=== PATIENT | male | born 1945 | race Caucasian/White ===

== ENCOUNTER 2018-12-14 18:49 | Inpatient (IN) | payer OTHER ==
[2018-12-14] MEDS ORDERED: NA CHLORIDE 0.9% 250 ML ONE ×2 (19:55→20:50)
[2018-12-14 20:09] LABS: Hematocrit 34.5 % (39.6-49.0); RBC Red Blood Cell Count 3.58 M/uL (4.33-5.43)
[2018-12-14 20:10] LABS: Absolute Lymphocytes (CBC) 0.9 K/uL (0.7-4.9); Basophils % 0.2 % (0-1.3); Lymphocytes % 6.9 % (15.3-44.8); MPV 8.6 fL (7.6-11.3)
[2018-12-14 20:13] LABS: Protime INR 1.85
--- NOTE | 2018-12-14 20:18 | RAD REPORT ---
EXAM DESCRIPTION: RAD - Chest Single View - 12/14/2018 7:41 pm CLINICAL HISTORY: Weakness, tachypnea COMPARISON: August 2015 TECHNIQUE: AP portable chest image was obtained 1928 hours . FINDINGS: Lung volumes are low. This accentuates lung markings potentially masking early failure or volume overload. Trachea is midline. Cardiomediastinal silhouette within normal limits for body habit us, portable technique and shallow inspiration. No measurable pleural effusion and no pneumothorax. N o acute bony abnormality seen. No acute aortic findings suspected. IMPRESSION: Limited portable study without acute cardiopulmonary finding. Mild forms of failure or volume overload can be masked in this setting.
[2018-12-14 20:24] LABS: Potassium 3.7 mmol/L (3.5-5.1)
--- NOTE | 2018-12-14 20:36 | ER ---
Nurse's Notes [facility] Name: Anoop Medina Age: 73 yrs Sex: Male : 1945 Arrival Date: 12/14/2018 Time: 18:50 Bed 15 Private MD: Bowen Carbajal Atiq Diagnosis: Cellulitis of right lower limb;Dehydration;Hypotension Presentation: 12/14 19:00 Presenting complaint: EMS states: Cellulitis of bilateral lower extremities, edema and jl7 weakness. Pt states "My sister made me call." Pt denies pain, denies N/V/D. Transition of care: patient was not received from another setting of care. Onset of symptoms is unknown. Risk Assessment: Do you want to hurt yourself or someone else? Patient reports no desire to harm self or others. Initial Sepsis Screen: Does the patient meet any 2 criteria? No. Patient's initial sepsis screen is negative. Does the patient have a suspected source of infection? No. Patient's initial sepsis screen is negative. Care prior to arrival: IV initiated. 20 GA, in the right hand, Glucose check: 93 Oxygen administered. via nasal cannula. 19:00 Method Of Arrival: EMS: [facility] jl7 19:00 Acuity: ROSY 3 jl7 Historical: - Allergies: 19:04 Zocor; jl7 - Home Meds: 19:04 Xarelto Oral [Active]; carvedilol oral oral [Active]; Hydrochlorothiazide Oral jl7 [Active]; Folbic Oral [Active]; valsartan Oral [Active]; - PMHx: 19:04 Atrial Fib; High Cholesterol; Hypertension; jl7 - Immunization history:: Adult Immunizations unknown. - Social history:: Smoking status: Patient uses tobacco products, chewing tobacco. - Ebola Screening: : No symptoms or risks identified at this time. - Family history:: not pertinent. - Hospitalizations: : No recent hospitalization is reported. Screenin:00 Abuse screen: Denies threats or abuse. Nutritional screening: No deficits noted. jb4 Tuberculosis screening: No symptoms or risk factors identified. Fall Risk None identified. Assessment: 19:00 General: Appears in no apparent distress. comfortable, Behavior is calm, cooperative, jb4 appropriate for age. Pain: Denies pain. Neuro: Level of Consciousness is awake, alert, obeys commands, Oriented to person, place, time, situation. Cardiovascular: Patient's skin is warm and dry. Edema is 2+ to left foot and right foot pitting to left foot and right foot. Respiratory: Airway is patent Respiratory effort is even, unlabored, Respiratory pattern is regular, symmetrical. GI: No deficits noted. No signs and/or symptoms were reported involving the gastrointestinal system. : No deficits noted. No signs and/or symptoms were reported regarding the genitourinary system. EENT: No deficits noted. No signs and/or symptoms were reported regarding the EENT system. Derm: Skin is intact, Skin is pink, warm \\T\\ dry. Right lower leg is red and inflamed, hot to the touch. Musculoskeletal: Circulation, motion, and sensation intact. Range of motion: intact in all extremities. 20:00 Reassessment: Patient appears in no apparent distress at this time. Patient and/or jb4 family updated on plan of care and expected duration. Pain level reassessed. Patient is alert, oriented x 3, equal unlabored respirations, skin warm/dry/pink. Vital Signs: 18:58 BP 104 / 60; Pulse 59; Resp 23; Temp 98.9(O); Pulse Ox 98% on R/A; Weight 146.06 kg jb4 (R); Height 5 ft. 11 in. (180.34 cm); Pain 0/10; 20:35 BP 103 / 62; Pulse 86; Resp 23; Pulse Ox 94% on 2 lpm NC; jb4 21:08 BP 102 / 57; Pulse 83; Resp 22; Temp 97.8(O); Pulse Ox 95% on 2 lpm NC; jb4 18:58 Body Mass Index 44.91 (146.06 kg, 180.34 cm) jb4 ED Course: 18:50 Patient arrived in ED. am2 18:50 Bowen Carbajal MD is Private Physician. am2 19:00 Patient has correct armband on for positive identification. Placed in gown. Bed in low jb4 position. Call light in reach. Side rails up X 1. business development on. Pulse ox on. NIBP on. 19:00 Maintain EMS IV. Dressing intact. Good blood return noted. Site clean \\T\\ dry. Gauge \\T\\ angela 4 site: 20g RFA. 19:02 Triage completed. jl7 19:04 Arm band placed on right wrist. jl7 19:06 Alexander Campos MD is Attending Physician. rn 19:06 Charlie Sylvester, RN is Primary Nurse. jb4 19:41 XRAY Chest (1 view) In Process Unspecified. EDMS 20:35 Negrito Romano MD is Hospitalizing Provider. rn 21:40 No provider procedures requiring assistance completed. Patient admitted, IV remains in jb4 place. Administered Medications: 19:55 Drug: NS 0.9% 250 ml Route: IV; Rate: bolus; Site: right antecubital; jb4 20:20 Follow up: Response: No adverse reaction; IV Status: Completed infusion; IV Intake: jb4 250ml 21:07 Drug: vancoMYCIN 1.5 grams Route: IVPB; Rate: calculated rate; Site: right forearm; jb4 21:45 Follow up: Response: No adverse reaction; IV Status: Infusion continued upon admission jb4 21:07 Drug: NS 0.9% 250 ml Route: IV; Rate: bolus; Site: right forearm; jb4 21:50 Follow up: Response: No adverse reaction; IV Status: Completed infusion; IV Intake: jb4 250ml Intake: 20:20 IV: 250ml; Total: 250ml. jb4 21:50 IV: 250ml; Total: 500ml. jb4 Outcome: 20:35 Decision to Hospitalize by Provider. rn 21:40 Admitted to Tele accompanied by nurse, via stretcher, room 407, with chart, Report jb4 called to [facility] 21:40 Condition: stable 21:40 Discharge instructions given to patient, Instructed on the need for admit, Demonstrated understanding of instructions. 21:45 Patient left the ED. jb4 Signatures: Dispatcher [employer] EDMS Alexander Campos MD MD rn Bryson, James, RN RN jb4 Radha George RN RN jl7 Subha Navarrete am2 Corrections: (The following items were deleted from the chart) 21:09 20:35 BP 103 / 62; Pulse 86bpm; Resp 23bpm; Pulse Ox 67% RA; jb4 jb4 21:10 21:08 BP 102 / 57; Pulse 83bpm; Resp 22bpm; Pulse Ox 95% 2 lpm Nasal Cannula; jb4 jb4
--- NOTE | 2018-12-14 20:37 | EDPHYS ---
Physician Documentation [facility] Name: Anoop Medina Age: 73 yrs Sex: Male : 1945 Arrival Date: 12/14/2018 Time: 18:50 Bed 15 Private MD: Bowen Carbajal Atiq ED Physician Alexander Campos HPI: 12/14 19:13 This 73 yrs old Male presents to ER via EMS with complaints of General rn Weakness. 19:13 This 73 yrs old Male presents to ER via EMS with complaints of General rn Weakness, cellulitis. 19:13 The patient presents with cellulitis of the right leg. Description: erythematous, hot, rn swollen, warm. Onset: The symptoms/episode began/occurred 3 day(s) ago. Possible cause(s): unknown. Modifying factors: the symptoms are alleviated by nothing, the symptoms are aggravated by nothing. Severity of symptoms: At their worst the symptoms were moderate, in the emergency department the symptoms are unchanged. The patient has experienced similar episodes in the past. Reports about 3 days of right leg redness and warmth, no fever, no known trauma other than states constant rubbing of leg of furniture. . Historical: - Allergies: 19:04 Zocor; jl7 - Home Meds: 19:04 Xarelto Oral [Active]; carvedilol oral oral [Active]; Hydrochlorothiazide Oral jl7 [Active]; Folbic Oral [Active]; valsartan Oral [Active]; - PMHx: 19:04 Atrial Fib; High Cholesterol; Hypertension; jl7 - Immunization history:: Adult Immunizations unknown. - Social history:: Smoking status: Patient uses tobacco products, chewing tobacco. - Ebola Screening: : No symptoms or risks identified at this time. - Family history:: not pertinent. - Hospitalizations: : No recent hospitalization is reported. ROS: 19:15 Constitutional: Negative for fever, chills, and weight loss, Eyes: Negative for injury, rn pain, redness, and discharge, Neck: Negative for injury, pain, and swelling, Cardiovascular: Negative for chest pain, palpitations, + edema Respiratory: Negative for shortness of breath, cough, wheezing, and pleuritic chest pain, Abdomen/GI: Negative for abdominal pain, nausea, vomiting, diarrhea, and constipation, : Negative for injury, bleeding, discharge, and swelling, MS/Extremity: Negative for injury and deformity, Skin: + redness of RLE, no laceration or abscess Neuro: Negative for headache, numbness, tingling, and seizure. Exam: 19:15 Constitutional: Overweight male, no acute distress Head/Face: Normocephalic, rn atraumatic. Eyes: Pupils equal round and reactive to light, extra-ocular motions intact. Lids and lashes normal. Conjunctiva and sclera are non-icteric and not injected. Cornea within normal limits. Periorbital areas with no swelling, redness, or edema. ENT: dry MM Cardiovascular: Regular rate, irregular rhythm, distal pulses intact Respiratory: Mild tachypnea with diminished breath sounds at bases Abdomen/GI: soft, non-tender, + umbilical hernia easily reduced and non-tender Skin: + chronic lymphedema with assoc changes, + RLE erythema and warmth superimposed to right knee, no purulence, no fluctuance. MS/ Extremity: Pulses equal, no cyanosis. Neurovascular intact. Full, normal range of motion. Equal circumference. Neuro: Awake and alert, GCS 15 19:47 ECG was reviewed by the Attending Physician. rn Vital Signs: 18:58 BP 104 / 60; Pulse 59; Resp 23; Temp 98.9(O); Pulse Ox 98% on R/A; Weight 146.06 kg jb4 (R); Height 5 ft. 11 in. (180.34 cm); Pain 0/10; 20:35 BP 103 / 62; Pulse 86; Resp 23; Pulse Ox 94% on 2 lpm NC; jb4 21:08 BP 102 / 57; Pulse 83; Resp 22; Temp 97.8(O); Pulse Ox 95% on 2 lpm NC; jb4 18:58 Body Mass Index 44.91 (146.06 kg, 180.34 cm) jb4 MDM: 19:06 Patient medically screened. rn 20:34 Differential diagnosis: cellulitis. Data reviewed: vital signs, nurses notes, lab test rn result(s), radiologic studies, plain films, and as a result, I will admit patient. Counseling: I had a detailed discussion with the patient and/or guardian regarding: the historical points, exam findings, and any diagnostic results supporting the discharge/admit diagnosis, lab results, radiology results, the need for further work-up and treatment in the hospital. Response to treatment: the patient's symptoms have mildly improved after treatment, and as a result, I will admit patient. Admission orders: after a detailed discussion of the patient's condition and case, the admit orders are written by me. ED course: Consulted with Dr. Romano, will admit for cellulitis, low blood pressure, dehydration. BP improving with fluids, will not give too much 2/2 CHF. . 12/14 19:12 Order name: CBC with Diff; Complete Time: 21:05 rn 12/14 19:12 Order name: Basic Metabolic Panel; Complete Time: 20:31 rn 12/14 19:12 Order name: Protime (+inr); Complete Time: 20:31 rn 12/14 19:12 Order name: Ptt, Activated; Complete Time: 20:31 rn 12/14 19:12 Order name: Blood Culture Adult (2) 12/14 19:12 Order name: Procalcitonin; Complete Time: 21:05 rn 12/14 19:12 Order name: IV Start; Complete Time: 19:48 rn 12/14 19:12 Order name: BNP; Complete Time: 20:31 rn 12/14 19:12 Order name: EKG; Complete Time: 19:13 rn 12/14 19:14 Order name: XRAY Chest (1 view); Complete Time: 20:31 rn 12/14 20:15 Order name: Manual Differential; Complete Time: 21:05 EDWA 12/14 19:12 Order name: EKG - Nurse/Tech; Complete Time: 19:48 rn EC:47 Rate is 87 beats/min. Rhythm is irregularly irregular. QRS Bascom is Normal. QRS interval rn is normal. QT interval is normal. No Q waves. T waves are Normal. No ST changes noted. Clinical impression: Atrial Fibrillation. Interpreted by me. Reviewed by me. Administered Medications: 19:55 Drug: NS 0.9% 250 ml Route: IV; Rate: bolus; Site: right antecubital; jb4 20:20 Follow up: Response: No adverse reaction; IV Status: Completed infusion; IV Intake: jb4 250ml 21:07 Drug: vancoMYCIN 1.5 grams Route: IVPB; Rate: calculated rate; Site: right forearm; jb4 21:45 Follow up: Response: No adverse reaction; IV Status: Infusion continued upon admission jb4 21:07 Drug: NS 0.9% 250 ml Route: IV; Rate: bolus; Site: right forearm; jb4 21:50 Follow up: Response: No adverse reaction; IV Status: Completed infusion; IV Intake: jb4 250ml Disposition: 12/14/18 20:35 Hospitalization ordered by Negrito Romano for Inpatient Admission. Preliminary diagnosis are Cellulitis of right lower limb, Dehydration, Hypotension. - Bed requested for Telemetry/MedSurg (Inpatient). - Status is Inpatient Admission. jb4 - Condition is Stable. - Problem is new. - Symptoms have improved. UTI on Admission? No Signatures: Dispatcher [employer] EDMS Lissy Mace RN RN mw Alexander Campos MD MD rn Bryson, James, RN RN jb4 Radha George RN RN jl7 Corrections: (The following items were deleted from the chart) 20:43 20:35 Hospitalization Ordered by Negrito Romano MD for Inpatient Admission. Preliminary diagnosis is Cellulitis of right lower limb; Dehydration; Hypotension. Bed requested for Telemetry/MedSurg (Inpatient). Status is Inpatient Admission. Condition is Stable. Problem is new. Symptoms have improved. UTI on Admission? No. rn 21:45 20:43 12/14/2018 20:35 Hospitalization Ordered by Negrito Romano MD for Inpatient jb4 Admission. Preliminary diagnosis is Cellulitis of right lower limb; Dehydration; Hypotension. Bed requested for Telemetry/MedSurg (Inpatient). Status is Inpatient Admission. Condition is Stable. Problem is new. Symptoms have improved. UTI on Admission? No. mw
[2018-12-14] MEDS ORDERED: NA CHLORIDE 0.9% 500 ML ONE (20:50)
[2018-12-14] MEDS ORDERED: VANCOMYCIN 1 GM/VIAL ONE (20:50)
[2018-12-14 20:58] LABS: Blood Morphology Comment NOT SEEN (NOT SEEN); Platelet Estimate ADEQ
[2018-12-14] MEDS ORDERED: NA CHLORIDE 0.9% 1,000 ML IV SCH (21:49)
[2018-12-14] MEDS ORDERED: ONDANSETRON 4 MG/2 ML VIAL IV PRN (21:49)
[2018-12-14] MEDS ORDERED: ACETAMINOPHEN 500 MG TAB PO PRN (21:49)
[2018-12-15 05:04] LABS: Absolute Lymphocytes (CBC) 0.8 K/uL (0.7-4.9); Basophils % 0.3 % (0-1.3); Lymphocytes % 7.3 % (15.3-44.8); MPV 8.4 fL (7.6-11.3); RBC Red Blood Cell Count 3.22 M/uL (4.33-5.43)
[2018-12-15 05:17] LABS: Potassium 3.8 mmol/L (3.5-5.1)
[2018-12-15 06:58] LABS: Blood Morphology Comment NOTED (NOT SEEN); Hypochromasia 1+; Platelet Estimate ADEQ; Stomatocytes 1+
[2018-12-15] MEDS ORDERED: VANCOMYCIN/NS 1 gm 1 GM/250 ML BAG IVPB SCH (09:00)
--- NOTE | 2018-12-15 09:34 | EKG ---
Test Date: 2018-12-14 Test Time: 19:43:34 Poultry Buyer: CARISSA MEASUREMENT RESULTS: Intervals: Rate: 87 MT: QRSD: 114 QT: 394 QTc: 474 [place]: P: MT: QRS: 47 T: 74 INTERPRETIVE STATEMENTS: Atrial fibrillation with premature ventricular or aberrantly conducted complexes Abnormal ECG Compared to ECG 09/06/2015 10:47:04 No significant changes Electronically Signed On 12-15-18 09:33:48 CDT by Jose Bae
[2018-12-15] MEDS ORDERED: clonazePAM 0.5 MG TAB PO ONE (12:58)
[2018-12-15] MEDS ORDERED: VANCOMYCIN 2 GM in NA CHLORIDE 0.9% 500 ML IVPB SCH (17:00)
--- NOTE | 2018-12-15 17:35 | P.HP ---
Certification for Inpatient Patient admitted to: Observation With expected LOS: <2 Midnights Patient will require the following post-hospital care: None Practitioner: I am a practitioner with admitting privileges, knowledge of patient current condition, hospital course, and medical plan of care. 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 He came to the hospital. Was found to have an elevated bun. The patient has been having cellulitis. He does not recall when this happened. The patient was admitted for iv fluids and hydration. He has been having some confusion on the fluids. The patient is not complaining of fevers. Allergies simvastatin [From Zocor] Allergy (Verified 12/14/18 22:33) Unknown Home Medications: Atorvastatin Calcium [Lipitor] 10 mg PO DAILY #30 tablet 09/17/11 Rivaroxaban [Xarelto] 20 mg PO DAILY #30 tablet 09/17/11 hydroCHLOROthiazide [Hydrodiuril*] 25 mg PO DAILY 09/06/15 Cyanocobalamin/Folic AC/Vit B6 [Folbic Tablet] 1 tab PO DAILY 12/14/18 Aspirin Chewable [Aspirin Chewable*] 81 mg PO DAILY 12/15/18 Carvedilol [Coreg] 12.5 mg PO BID 12/15/18 Metformin HCl [Glucophage] 500 mg PO BIDWM 12/15/18 Valsartan [Diovan] 160 mg PO DAILY 12/15/18 - Past Medical/Surgical History Has patient received pneumonia vaccine in the past: No Diabetic: No -: Hypertension -: Atrial fibrillation -: Hyperlipidemia -: Coronary artery disease with previous stent -: Morbid obesity -: Obstructive sleep apnea -: Cardiac catheterization with stent Psychosocial/ Personal History: He is single. Has no children. 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 - Social History Smoking Status: Never smoker Alcohol use: No CD- Drugs: No Caffeine use: No Place of Residence: Home Review of Systems 10-point ROS is otherwise unremarkable General: Fever Integumentary: Other (cellulitis of the lower leg) Physical Examination - Vital Signs Temperature: 98.9 F Blood Pressure: 112/76 Pulse: 63 Respirations: 20 Pulse Ox (%): 91 - Physical Exam General: Alert, In no apparent distress HEENT: Atraumatic, PERRLA, Mucous membr. moist/pink, EOMI, Sclerae nonicteric Neck: Supple, 2+ carotid pulse no bruit, No LAD, Without JVD or thyroid abnormality Respiratory: Clear to auscultation bilaterally, Normal air movement Cardiovascular: Regular rate/rhythm, Normal S1 S2 Gastrointestinal: Normal bowel sounds, No tenderness Musculoskeletal: No tenderness Integumentary: No rashes, Erythema, Warmth (right lower leg) Neurological: Normal gait, Normal speech, Normal strength at 5/5 x4 extr, Normal tone, Normal affect Lymphatics: No axilla or inguinal lymphadenopathy - Studies Laboratory Data (last 24 hrs) 12/14/18 19:53: PT 21.3 H, INR 1.85, APTT 36.0 12/14/18 19:53: Sodium 140, Potassium 3.7, BUN 76 H, Creatinine 1.12, Glucose 94 12/14/18 19:53: WBC 12.6 H, Hgb 11.5 L, Hct 34.5 L, Plt Count 352 Microbiology Data (last 24 hrs): 12/14/18 20:33 Blood - Blood Anaerobic Blood Culture - Final Assessment and Plan - Problems (Diagnosis) (1) Dehydration Current Visit: Yes Status: Acute Plan: will need to get a line in. will start him back on fluids. (2) Sleep apnea Current Visit: Yes Status: Acute Plan: will ask the family about getting his cpap from home. (3) Cellulitis Onset Date: 09/07/15 Current Visit: No Status: Acute Plan: Will switch to iv antibiotics. Will follow blood work as well. Qualifiers: Site of cellulitis of extremity: lower extremity Laterality: right (4) Hypertension Onset Date: 09/07/15 Current Visit: No Status: Chronic Plan: Continue home blood pressure medications. Qualifiers: Hypertension type: essential hypertension (5) Obstructive sleep apnea Onset Date: 09/07/15 Current Visit: No Status: Chronic Discharge Plan: Home Plan to discharge in: 48 Hours - Advance Directives Does patient have a Living Will: No Does patient have a Durable POA for Healthcare: No - Code Status/Comfort Care Code Status Assessed: No Code Status: Full Code Physician Review: Patient Assessed, Agree with Above Assessment and Plan Critical Care: No Time Spent Managing Pts Care (In Minutes): 45
[2018-12-15] MEDS: NA CHLORIDE 0.9% 1,000 ML IV SCH (18:47)
--- NOTE | 2018-12-15 18:48 | RAD REPORT ---
EXAM DESCRIPTION: CT - Head Brain Wo Cont - 12/15/2018 6:39 pm CLINICAL HISTORY: AMS Headache, drowsiness COMPARISON: Chest Abdomen Pelvis W Cont dated 09/06/2015 TECHNIQUE: All CT scans are performed using dose optimization technique as appropriate and may inclu de automated exposure control or mA/KV adjustment according to patient size. FINDINGS: No intracranial hemorrhage, hydrocephalus or extra-axial fluid collection.Area of diminish ed density is seen in the right posterior occipital lobe white matter measuring 18 mm, nonspecific. The paranasal sinuses and mastoids are clear. The calvarium is intact. Left vertebral artery is calci fied. IMPRESSION: 18 mm area of diminished nonspecific subcortical white matter density is present in the right occipital region. An area of subacute ischemia is possible. MRI brain with contrast followup w ould be suggested.
[2018-12-15] MEDS: SMZ./TMP. 800/160 MG TABLET PO SCH (20:00)
[2018-12-15] MEDS: RIVAROXABAN 20 MG TABLET PO SCH (20:03)
[2018-12-15] MEDS ORDERED: ATORVASTATIN 80 MG TAB PO SCH (21:00)
[2018-12-15] MEDS ORDERED: carvediloL 12.5 MG TAB PO SCH (21:00)
[2018-12-16] MEDS: NA CHLORIDE 0.9% 1,000 ML IV SCH ×2 (05:27→22:04)
[2018-12-16] MEDS ORDERED: RIVAROXABAN 20 MG TABLET PO SCH (08:00)
[2018-12-16] MEDS ORDERED: NA CHLORIDE 0.9% 500 ML IV ONE (08:54)
[2018-12-16] MEDS ORDERED: VALSARTAN 160 MG TAB PO SCH (09:00)
[2018-12-16] MEDS ORDERED: ATORVASTATIN 10 MG TAB PO SCH (09:00)
[2018-12-16] MEDS: hydroCHLOROthiazide 25 MG TAB PO SCH (09:00)
[2018-12-16] MEDS: SMZ./TMP. 800/160 MG TABLET PO SCH ×2 (09:02→21:00)
[2018-12-16] MEDS: ASPIRIN 81 MG CHEWABLE TABLET PO SCH (09:03)
[2018-12-16] MEDS ORDERED: LEVALBUTEROL 0.63 MG/3 ML NEB NEB PRN (11:22)
[2018-12-16 12:33] LABS: Arterial Blood Carboxyhemoglob 1.5 % (0-1.5); Blood Gas Oxyhemoglobin 90.9 % (94-97); Blood O2 Saturation 92.8 % (92-98.5)
--- NOTE | 2018-12-16 13:35 | P.PN ---
Date of Service: 12/15/18 Called during the afternoon. The patient was very agitated pulling out his iv. Given clonazepam. However he had some hypoxia. Did not have his cpap. Did not get his morning meds. Ct ordered. Possible ischemia in the right occipital area. Had called Dr. Dalton and discussed the case. Started him on high dose statin. Hold his bp meds for permissive htn. Will try to get an mri/mra in the am.
--- NOTE | 2018-12-16 13:37 | RAD REPORT ---
EXAM DESCRIPTION: RAD - Chest Pa And Lat (2 Views) - 12/16/2018 1:21 pm CLINICAL HISTORY: hypoxiahypoxia COMPARISON: None. TECHNIQUE: Portable AP and lateral views of the chest were obtained. Both lateral projections have v dontrell substantial motion degradation. FINDINGS: The lungs are underinflated. Interstitial and minimal alveolar opacities are present more prominent than prior imaging. Cardiac silhouette is enlarged. Trachea is midline. Vasculature is pr ominent. No pneumothorax or large pleural effusion. No acute bony finding noted. No aortic abnormali ty. IMPRESSION: CHF/volume overload pattern accentuated by shallow inspiration.
--- NOTE | 2018-12-16 13:43 | P.PN ---
Subjective Date of Service: 12/16/18 Primary Care Provider: Rosalina Chief Complaint: Cellulitis Subjective: New changes (still confused. He has some hypoxia when he takes off the cpap.) Review of Systems is unable to be obtained Physical Examination - Vital Signs Temperature: 97.3 F Blood Pressure: 110/81 Pulse: 82 Respirations: 18 Pulse Ox (%): 94 - Physical Exam General: Delirious HEENT: Atraumatic, PERRLA, EOMI Neck: Supple, JVD not distended Respiratory: Clear to auscultation bilaterally, Normal air movement Cardiovascular: Regular rate/rhythm, Normal S1 S2 Gastrointestinal: Normal bowel sounds, No tenderness Musculoskeletal: No tenderness Integumentary: No rashes Neurological: Normal speech, Normal tone, Normal affect Lymphatics: No axilla or inguinal lymphadenopathy - Studies Microbiology Data (last 24 hrs): 12/14/18 20:33 Blood - Blood Anaerobic Blood Culture - Final Assessment & Plan - Problems (Diagnosis) (1) CVA (cerebral vascular accident) Current Visit: Yes Status: Acute Plan: He was not able to get the MRI/MRA. Was agitated and hypoxic. Will continue medications. Consult with Dr. Dalton. Will have PT start working with the patient after his hypoxia resolves. Qualifiers: CVA mechanism: stenosis Precerebral and cerebral artery: posterior cerebral artery Laterality of affected vessel: right Qualified Code(s): I63.531 - Cerebral infarction due to unspecified occlusion or stenosis of right posterior cerebral artery (2) Hypoxia Current Visit: Yes Status: Acute Plan: He is hypercapnic as well. Will need to correct this before the MRI and PT. Have consulted Dr. Galeana most likely he will need a bipap (3) Sleep apnea Current Visit: Yes Status: Acute Plan: will ask the family about getting his cpap from home. (4) Cellulitis Onset Date: 09/07/15 Current Visit: No Status: Acute Plan: Will switch to iv antibiotics. Will follow blood work as well. Qualifiers: Site of cellulitis of extremity: lower extremity Laterality: right (5) Hypertension Onset Date: 09/07/15 Current Visit: No Status: Chronic Plan: Continue home blood pressure medications. Qualifiers: Hypertension type: essential hypertension (6) Obstructive sleep apnea Onset Date: 09/07/15 Current Visit: No Status: Chronic (7) Dehydration Current Visit: Yes Status: Acute Plan: will need to get a line in. will start him back on fluids. Discharge Plan: Home Plan to discharge in: Greater than 2 days - Code Status/Comfort Care Code Status Assessed: No Physician Review: Patient Assessed, Agree with Above Assessment and Plan Critical Care: No Time Spent Managing Pts Care (In Minutes): 35
[2018-12-16] MEDS ORDERED: Pharmacy Consult 1 EA XX PRN (13:46)
[2018-12-16] MEDS ORDERED: CEFEPIME 1 GM/VIAL IV SCH (13:47)
[2018-12-16 16:35] LABS: Absolute Lymphocytes (CBC) 0.8 K/uL (0.7-4.9); Basophils % 0.2 % (0-1.3); Hematocrit 36.2 % (39.6-49.0); Lymphocytes % 7.2 % (15.3-44.8); MPV 8.7 fL (7.6-11.3); RBC Red Blood Cell Count 3.68 M/uL (4.33-5.43)
[2018-12-16] MEDS: VANCOMYCIN 2 GM in NA CHLORIDE 0.9% 500 ML IVPB SCH (17:14)
[2018-12-16] MEDS: CEFEPIME/SWI 1gm 10 ML IVP SCH ×2 (17:14→22:05)
[2018-12-16 17:38] LABS: ALT/SGPT 34 U/L (12-78); AST/SGOT 33 U/L (15-37); Albumin 1.8 g/dL (3.4-5.0); Alkaline Phosphatase 186 U/L (45-117); BUN Blood Urea Nitrogen 41 mg/dL (7-18); Bicarbonate 35 mmol/L (21-32); Bilirubin Total 1.1 mg/dL (0.2-1.0); Glucose Level 70 mg/dL (74-106); Potassium 4.3 mmol/L (3.5-5.1); Protein, Total 7.7 g/dL (6.4-8.2); Sodium Level 147 mmol/L (136-145)
[2018-12-16] MEDS: RIVAROXABAN 20 MG TABLET PO SCH (20:00)
--- NOTE | 2018-12-16 20:41 | RAD REPORT ---
EXAM DESCRIPTION: CT - Head Brain Wo Cont - 12/16/2018 3:09 pm CLINICAL HISTORY: CVA. COMPARISON: December 15, 2018 TECHNIQUE: Computed axial tomography of the head was obtained. IV contrast was not requested. All CT scans are performed using dose optimization technique as appropriate and may include automated exposure control or mA/KV adjustment according to patient size. FINDINGS: The ventricles are normal in caliber. No extra-axial fluid collection is noted. 18 millimeter low-density within the right occipital lobe unchanged. . Intracranial bleed is not note d Fluid within the sinuses/ mastoids is not seen. IMPRESSION: 18 millimeter low-density area within the right occipital lobe unchanged which may repre sent an infarction. MRI brain is recommended
[2018-12-16] MEDS: LORazepam 2 MG/ML VIAL IV PRN (21:45)
--- NOTE | 2018-12-16 23:36 | CON ---
Reason For Consultation: Consultation called because of the acute stroke. History Of Present Illness: Mr. Medina is a 73-year-old right-handed patient who comes in [facility] with confusion and left leg cellulitis and was evaluated by head CT scan for his confusion with the finding of an 18 mm subacute stroke in the right occipital region. The patient's friend who was at the bedside indicates that prior to this event, say a week or so ago, he was funct ioning his usual baseline. He ambulated freely, had good normal conversations, was able to drive, di d not have any visual deficits or confusion and then developed the confusion about 3 or 4 days ago an d then came to [facility]. He did have a workup that revealed elevated white count of 12.6 with 84% neutrophils. His blood culture is, however, negative and he is being treated with intraveno us antibiotics for his cellulitis. After the identification of stroke, he was put on Xarelto 20 mg d aily. There is concern for potential atrial fibrillation being the reason for his stroke and he is o n now full anticoagulation. He does have additional stroke risk factors of hypertension, dyslipidemi a, prior coronary artery disease with stents along with morbid obesity and obstructive sleep apnea. He has had in addition cardiac stents in terms of his surgical procedures. Social History: No recent alcohol, tobacco, or IV drug use, and he was living independently. Medications: Lipitor 10 mg daily, Xarelto 20 mg daily, HydroDIURIL 25 mg daily, Folbic, which is fol ic acid and vitamin B6 daily, aspirin 81 mg daily, Coreg 12.5 mg twice daily, metformin 500 mg twice daily, Diovan 160 mg daily. Family History: Here, noncontributory. Review of Systems: At this point, the patient does not give any meaningful answers. He may answer with his name and rep eat phrases. Unable to complete therefore full 10-point review of systems. Physical Examination: Vital Signs: Blood pressure 110/81, pulse 82, respirations 16, temperature 97.3, and oxygen saturati on 94% to 98% on 2 L of oxygen by nasal cannula. General: Mr. Medina is resting in bed. His shirt is off and his legs are wrapped with the areas of cellulitis. He has swelling in the legs. HEENT: He appears normocephalic, atraumatic. Sclerae appear anicteric. Oropharynx pink, moist. Neck: Supple. Heart: Irregularly irregular. Abdomen: Obese and soft. Extremities: Again wrapped with edema and some evidence of venous stasis. Neurologic: He is somewhat somnolent but easily arousable and does answer to his name, may answer wi th 1 word answers to questions, however, not following instructions well. At least after his initial response, he was actually able to lift his right hand when told to do so and did show a few fingers but then did not follow instructions after that. However, he did spontaneously move his right and le ft arm and leg equally without any obvious asymmetries. His face appears to be symmetric and he does have good movement when speaking bilaterally. Cannot fully assess his sensory evaluation. Tone is normal in upper and lower extremities and coordination cannot be fully assessed and gait as well. Laboratory Studies: White blood cell count is now normal at 10.5 with 82.9% neutrophils. Hemoglobin and hematocrit 11.8 and 36.2. INR 1.85. Most recent arterial blood gas shows a pH of 7.32, pCO2 of 67.2, and pO2 of 71.2 consistent with acidosis from CO2 retention. His blood work on the s how procalcitonin of 0.64. His electrolytes from today show potassium of 4.3 and sodium 147. BUN im proved to 41 from 76 and creatinine 0.75. Liver function studies remarkable for alkaline phosphatase elevated at 186, but ALT and AST are normal. Total bilirubin elevated to 1.1. Calcium normal at 8. 6. His electrocardiogram shows atrial fibrillation. He has a pending repeat head CT scan without co ntrast. Assessment: Mr. Medina is a 73-year-old patient who has an 18 mm right occipital stroke and likely a left homonymous hemianopsia. However, he is not cooperating to be able to confirm that on neurolog ical examination. He does have multiple stroke risk factors including coronary artery disease, hyper tension, dyslipidemia, morbid obesity. He is slightly confused because of multifactorial reasons inc luding hypercapnia, hypoxia along with an [id number] occipital stroke that may be impacting hi s ability to communicate effectively with an aphasia. He does not have any obvious evidence of focal weakness in the arms and legs. Plan: 1.Okay to continue Xarelto 20 mg daily, but should discontinue aspirin while on Xarelto. 2.May have some permissive hypertension in the acute phase of stroke. 3.Work on dyslipidemia. We will continue the atorvastatin. 4.The patient will likely require long-term placement given his inability to follow instructions and to mobilize independently and therefore either senior care or other facility should be sought fo r discharge. I will follow up the pending head CT scan which does not rule out hemorrhagic conversio n and he may begin occupational therapy with bed mobility exercises. MELA Voice ID: [id number] Report ID: [id number]
[2018-12-17 01:32] LABS: Arterial Blood Carboxyhemoglob 1.2 % (0-1.5); Blood Gas Oxyhemoglobin 89.2 % (94-97); Blood O2 Saturation 91.1 % (92-98.5)
[2018-12-17] MEDS: HALOPERIDOL LACT 5 MG/ML INJ IV PRN ×4 (02:45→17:43)
[2018-12-17] MEDS: LORazepam 2 MG/ML VIAL IV PRN (04:06)
[2018-12-17 05:33] VITALS: BMI 47.2
[2018-12-17 08:15] VITALS: O2SAT 95
[2018-12-17] MEDS: hydroCHLOROthiazide 25 MG TAB PO SCH (08:47)
[2018-12-17] MEDS: ASPIRIN 81 MG CHEWABLE TABLET PO SCH (08:48)
[2018-12-17] MEDS ORDERED: SMZ./TMP. 10 ML in D5W 250 ML IVPB SCH (09:00)
[2018-12-17] MEDS: CEFEPIME/SWI 1gm 10 ML IVP SCH (10:14)
[2018-12-17] MEDS: VANCOMYCIN 2 GM in NA CHLORIDE 0.9% 500 ML IVPB SCH (10:14)
--- NOTE | 2018-12-17 10:26 | P.PN ---
Subjective Date of Service: 12/17/18 Primary Care Provider: Rosalina Chief Complaint: Cellulitis Subjective: Worsening (Patient was very agitated. Moved to ICU and given haldol last night) Review of Systems is unable to be obtained Physical Examination - Vital Signs Temperature: 98.2 F Blood Pressure: 110/65 Pulse: 80 Respirations: 15 Pulse Ox (%): 96 - Physical Exam General: Delirious HEENT: Atraumatic, PERRLA, EOMI Neck: Supple, JVD not distended Respiratory: Clear to auscultation bilaterally, Normal air movement Cardiovascular: Regular rate/rhythm, Normal S1 S2 Gastrointestinal: Normal bowel sounds, No tenderness Musculoskeletal: No tenderness Integumentary: No rashes Neurological: Normal speech, Normal tone, Normal affect Lymphatics: No axilla or inguinal lymphadenopathy Assessment & Plan - Problems (Diagnosis) (1) CVA (cerebral vascular accident) Current Visit: Yes Status: Acute Plan: He was not able to get the MRI/MRA. Was agitated and hypoxic. Will continue medications. Consult with Dr. Dalton. Will have PT start working with the patient after his hypoxia resolves. Has been too agitated for the MRI. Will need to manage his respiratory failure. Before we can get any further imaging. Will continue xarelto and statin. Qualifiers: CVA mechanism: stenosis Precerebral and cerebral artery: posterior cerebral artery Laterality of affected vessel: right Qualified Code(s): I63.531 - Cerebral infarction due to unspecified occlusion or stenosis of right posterior cerebral artery (2) Hypoxia Current Visit: Yes Status: Acute Plan: He is hypercapnic as well. In the ICU. Agitation has improved. Unfortunately he is still hypercapneic. Will continue bipap therapy. Dr. Galeana is following. (3) Sleep apnea Current Visit: Yes Status: Acute Plan: will ask the family about getting his cpap from home. (4) Cellulitis Onset Date: 09/07/15 Current Visit: No Status: Acute Plan: Will switch to iv antibiotics. Will follow blood work as well. Qualifiers: Site of cellulitis of extremity: lower extremity Laterality: right (5) Hypertension Onset Date: 09/07/15 Current Visit: No Status: Chronic Plan: Continue home blood pressure medications. Qualifiers: Hypertension type: essential hypertension (6) Obstructive sleep apnea Onset Date: 07/08/16 Current Visit: No Status: Chronic (7) Dehydration Current Visit: Yes Status: Acute Plan: will need to get a line in. will start him back on fluids. Discharge Plan: Home Plan to discharge in: Greater than 2 days - Code Status/Comfort Care Code Status Assessed: No Physician Review: Patient Assessed, Agree with Above Assessment and Plan Critical Care: Yes Time Spent Managing Pts Care (In Minutes): 25
[2018-12-17] MEDS: NA CHLORIDE 0.9% 1,000 ML IV SCH (11:00)
--- NOTE | 2018-12-17 11:33 | P.CNS ---
Date of Consult: 12/16/18 Primary Care Provider: Rosalina Chief Complaint: Altered mental status respiratory failure History of Present Illness: Patient is 73 years of age admitted with cellulitis was having significant desaturations altered mental status confusion currently he lives by himself and is able to take care of off himself. Unable to obtain any meaningful history Patient is anti coagulated ABG shows hypoxemia with hypercapnia wound cultures positive mildly anemic pro calcitonin level elevated white count is also elevated history of sleep apnea I am not sure using his CPAP at home CT scan of the head was abnormal unable to do an MRI lesion is noted in the right occipital area Allergies simvastatin [From Zocor] Allergy (Verified 12/14/18 22:33) Unknown Home Medications: Atorvastatin Calcium [Lipitor] 10 mg PO DAILY #30 tablet 09/17/11 Rivaroxaban [Xarelto] 20 mg PO DAILY #30 tablet 09/17/11 hydroCHLOROthiazide [Hydrodiuril*] 25 mg PO DAILY 09/06/15 Cyanocobalamin/Folic AC/Vit B6 [Folbic Tablet] 1 tab PO DAILY 12/14/18 Aspirin Chewable [Aspirin Chewable*] 81 mg PO DAILY 12/15/18 Carvedilol [Coreg] 12.5 mg PO BID 12/15/18 Metformin HCl [Glucophage] 500 mg PO BIDWM 12/15/18 Valsartan [Diovan] 160 mg PO DAILY 12/15/18 - Past Medical/Surgical History Diabetic: No -: Hypertension -: Atrial fibrillation -: Hyperlipidemia -: Coronary artery disease with previous stent -: Morbid obesity -: Obstructive sleep apnea -: Cardiac catheterization with stent Psychosocial/ Personal History: He is single. Has no children. 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 - Social History Smoking Status: Never smoker Alcohol use: No CD- Drugs: No Caffeine use: No Place of Residence: Home Review of Systems is unable to be obtained Physical Examination Temp Pulse Resp BP Pulse Ox 98.2 F 80 15 110/65 96 12/17/18 10:26 12/17/18 10:26 12/17/18 10:26 12/17/18 10:26 12/17/18 10:26 General: Delirious Respiratory: Clear to auscultation bilaterally, Diminished Cardiovascular: Normal S1 S2, Edema (Significant lower extremity edema probably lymphedema), Irregular heart rate/rhythm Gastrointestinal: Normal bowel sounds, Soft and benign - Problems (1) Respiratory failure Status: Acute Plan: Patient is 73 years of age admitted with cellulitis he has hypoxic hypercapnic respiratory failure unable to obtain any meaningful history about smoking he does live by himself and compliant with his CPAP machine patient is being BNP is elevated mildly hypernatremic mildly anemic elevated white count vital signs stable continue to monitor started him broad-spectrum antibiotics blood cultures suspect contamination chest x-ray abnormal can drink exclude an infection echocardiogram pending he may have underlying obstructive airways disease sat bronchodilators Qualifiers: Chronicity: acute on chronic
[2018-12-17] MEDS: ARFORMOTEROL TARTRATE 15 MCG/2 ML VIAL.NEB NEB SCH ×2 (11:36→19:45)
--- NOTE | 2018-12-17 11:39 | P.PN ---
Subjective Date of Service: 12/17/18 Primary Care Provider: Rosalina Chief Complaint: Altered mental status respiratory failure No change patient is still agitated unresponsive non cooperative on BiPAP Review of Systems is unable to be obtained Physical Examination - Vital Signs Temperature: 98.2 F Blood Pressure: 110/65 Pulse: 80 Respirations: 15 Pulse Ox (%): 96 - Physical Exam General: Delirious Respiratory: Clear to auscultation bilaterally Cardiovascular: Edema, Irregular heart rate/rhythm Assessment & Plan - Problems (Diagnosis) (1) Respiratory failure Current Visit: Yes Status: Acute Plan: Patient is 73 years of age admitted with respiratory failure acute on chronic I suspect hypoxic hypercarbic hypernatremic start on D5 water vital signs stable continue with bronchodilators antibiotics Dc hydrochlorothiazide consider LTAC relatives to bring patient's CPAP from home tsh level is normal may have had an underlying stroke unable to do an MRI patient is on minimal oxygen Qualifiers: Chronicity: acute on chronic Physician Review: Patient Assessed, Agree with Above Assessment and Plan
[2018-12-17] MEDS ORDERED: D5W 1,000 ML IV SCH (12:00)
--- NOTE | 2018-12-17 12:56 | ECHO ---
HEIGHT: 5 ft 10 in WEIGHT: 329 lb 4.8 oz DATE OF STUDY: 12/17/[address]: Varinder Otero MD 2-DIMENSIONAL: YES M.MODE: YES DOPPLER: YES COLOR FLOW: YES TDS: YES PORTABLE: YES DEFINITY: BUBBLE STUDY: DIAGNOSIS: RESPIRATORY FAILURE CARDIAC HISTORY: CATHERIZATION: YES SURGERY: NO PROSTHETIC VALVE: NO PACEMAKER: NO MEASUREMENTS (cm) DIASTOLIC (NORMALS) SYSTOLIC (NORMALS) IVSd 1.1 (0.6-1.2) LA Diam 4.8 (1.9-4.0) LVEF 52% LVIDd 6.1 (3.5-5.7) LVIDs 4.4 (2.0-3.5) %FS 27% LVPWd 1.2 (0.6-1.2) Ao Diam 3.5 (2.0-3.7) 2 DIMENSIONAL ASSESSMENT: RIGHT ATRIUM: DILATED LEFT ATRIUM: DILATED RIGHT VENTRICLE: NORMAL LEFT VENTRICLE: DILATED TRICUSPID VALVE: NORMAL MITRAL VALVE: NORMAL PULMONIC VALVE: NORMAL AORTIC VALVE: SCLEROSIS PERICARDIAL EFFUSION: NONE AORTIC ROOT: NORMAL LEFT VENTRICULAR WALL MOTION: NORMAL DOPPLER/COLOR FLOW: MILD MITRAL REGURGITATION. NO AORTIC STENOSIS OR AORTIC REGURGITATION. COMMENTS: NORMAL LEFT VENTRICULAR EJECTION FRACTION. DILATED LEFT ATRIUM, LEFT VENTRICLE AND RIGHT ATRIUM. AORTIC SCLEROSIS WITH NO AORTIC STENOSIS OR AORTIC REGURGITATION. MILD MITRAL REGURGITATION. LEFT VENTRICULAR HYPERTROPHY. ATRIAL FIBRILLATION. HEART RATE 80-90 BEATS PER MINUTE. TECHNOLOGIST: JOSEF ESTRADA
--- NOTE | 2018-12-17 18:38 | P.PN ---
Date of Service: 12/17/18 Came in to discuss the snf care with the patients siblings. Lissy and Braden. The family states he would not want to be on a ventilator. 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 The do not want an LTAC. Both sibling feel he would want to be a dnr. They do not want him going to a LTAC, with a bipap. Will respect there wishes. Will make the patient a dnr. Will consult [facility].
[2018-12-17 21:38] VITALS: BP 117/79; TEMP 98
--- NOTE | 2018-12-18 07:59 | P.DS ---
Admission Date: 12/14/18 Discharge Date: 12/18/18 Primary Care Provider: Rosalina Disposition: HOSPICE-MEDICAL FACILITY Discharge Condition: Reason for Admission: Altered mental status respiratory failure - Problems (1) CVA (cerebral vascular accident) Status: Acute Qualifiers: CVA mechanism: stenosis Precerebral and cerebral artery: posterior cerebral artery Laterality of affected vessel: right Qualified Code(s): I63.531 - Cerebral infarction due to unspecified occlusion or stenosis of right posterior cerebral artery (2) Hypoxia Status: Acute (3) Sleep apnea Status: Acute (4) Cellulitis Onset Date: 09/07/15 Status: Acute Qualifiers: Site of cellulitis of extremity: lower extremity Laterality: right (5) Hypertension Onset Date: 09/07/15 Status: Chronic Qualifiers: Hypertension type: essential hypertension (6) Obstructive sleep apnea Onset Date: 09/07/15 Status: Chronic (7) Dehydration Status: Acute Brief History of Present Illness: 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 He came to the hospital. Was found to have an elevated bun. The patient has been having cellulitis. He does not recall when this happened. The patient was admitted for iv fluids and hydration. He has been having some confusion on the fluids. The patient is not complaining of fevers. Hospital Course: Patient was admitted for cellulitis. However he had been getting sicker and weaker for a few days till his sister convinced him to come to the hospital. He became confused [id number]. We ordered a CT that night. Which showed a possible cva in the right occipital lobe. The patient was more confused the next day. Patient had an abg and was put on bipap for hypercapnia and hypoxia. Unfortunately he did not tolerated it and had to be sedated. His family met with me yesterday. Stated he would not want to live this way and the decision was made for hospice. The patient took off his cpap and approx 2250. Thank you for allowing me to take part in his care. We wish the best for his family Vital Signs/Physical Exam: Temp Pulse Resp BP Pulse Ox 98 F 103 H 24 H 117/79 97 12/17/18 20:00 12/17/18 21:00 12/17/18 21:00 12/17/18 21:00 12/17/18 21:00 Laboratory Data at Discharge: WBC 10.5 K/uL (4.3-10.9) 12/16/18 16:03 Hgb 11.8 g/dL (13.6-17.9) L 12/16/18 16:03 Hct 36.2 % (39.6-49.0) L D 12/16/18 16:03 Plt Count 379 K/uL (152-406) 12/16/18 16:03 PT 21.3 SECONDS (9.5-12.5) H 12/14/18 19:53 INR 1.85 12/14/18 19:53 APTT 36.0 SECONDS (24.3-36.9) 12/14/18 19:53 Sodium 147 mmol/L (136-145) H 12/16/18 16:03 Potassium 4.3 mmol/L (3.5-5.1) 12/16/18 16:03 BUN 41 mg/dL (7-18) H D 12/16/18 16:03 Creatinine 0.75 mg/dL (0.55-1.3) 12/16/18 16:03 Glucose 70 mg/dL (74-106) L 12/16/18 16:03 Total Bilirubin 1.1 mg/dL (0.2-1.0) H 12/16/18 16:03 AST 33 U/L (15-37) 12/16/18 16:03 ALT 34 U/L (12-78) 12/16/18 16:03 Alkaline Phosphatase 186 U/L (45-117) H 12/16/18 16:03 Home Medications: Atorvastatin Calcium [Lipitor] 10 mg PO DAILY #30 tablet 09/17/11 Rivaroxaban [Xarelto] 20 mg PO DAILY #30 tablet 09/17/11 hydroCHLOROthiazide [Hydrodiuril*] 25 mg PO DAILY 09/06/15 Cyanocobalamin/Folic AC/Vit B6 [Folbic Tablet] 1 tab PO DAILY 12/14/18 Aspirin Chewable [Aspirin Chewable*] 81 mg PO DAILY 12/15/18 Carvedilol [Coreg] 12.5 mg PO BID 12/15/18 Metformin HCl [Glucophage] 500 mg PO BIDWM 12/15/18 Valsartan [Diovan] 160 mg PO DAILY 10/16/19 Time spent managing pt's care (in minutes): 10
--- NOTE | 2018-12-28 10:41 | EEG ---
CHART: [id number] TEST ID#: [id number] DATE OF STUDY: 12/18/2018 THE EEG WAS RECORDED PORTABLE IN THE PATIENTS ROOM ON A 17 CHANNEL MACHINE. ELECTRODES WERE APPLIED IN THE USUAL MANNER USING THE INTERNATIONAL 10-20 SYSTEM. THE WAKING BACKGROUND RHYTHM IN THIS RECORD CONSISTS OF POORLY DEVELOPED AND WELL ORGANIZED WAVES OF 6 HZ., MAXIMAL IN THE POSTERIOR HEAD REGIONS WHICH ATTENUATE POORLY WITH EYE OPENING. MODERATE VOLTAGE 2-4 HZ ACTIVITY IS EXPRESSED DIFFUSELY IN ALL REGIONS. LOW VOLTAGE 15-18 HZ ACTIVITY IS EXPRESSED IN THE FRONTAL REGIONS. THERE ARE NO FOCAL OR LATERALIZING FEATURES. NO EPILEPTIFORM ACTIVITY APPEARS. SLEEP DID NOT OCCUR. HYPERVENTILATION WAS NOT PERFORMED. PHOTIC STIMULATION WAS NOT PERFORMED. IMPRESSION: THIS IS A MARKEDLY ABNORMAL ROUTINE AWAKE EEG DUE TO THE MODERATELY SLOW BACKGROUND. THIS IS A NON-SPECIFIC FINDING INDICATING THE PRESENCE OF A MODERATE DIFFUSE DISTURBANCE IN CEREBRAL ACTIVITY.
== END 2018-12-17 21:30 | disposition hospice, inpatient (51) | DRG 602 ==
LOC: ER 18:49 → ERHOLD 20:57 → 4TH 21:18 → 3RD-ICU 12-17 01:45
PROVIDERS: ADMIT Internal Medicine; ATTEND Internal Medicine
PROC: 5A09357 Assistance with Respiratory Ventilation, Less than 24 Consecutive Hours, Continuous Positive Airway Pressure (ICD-10-PCS; principal; 2018-12-15)
DX: L03.115 Cellulitis of right lower limb (principal); I63.531 Cerebral infarction due to unspecified occlusion or stenosis of right posterior cerebral artery; J96.22 Acute and chronic respiratory failure with hypercapnia; J96.21 Acute and chronic respiratory failure with hypoxia; E87.0 Hyperosmolality and hypernatremia; N17.9 Acute kidney failure, unspecified; R47.01 Aphasia; H53.462 Homonymous bilateral field defects, left side; G47.33 Obstructive sleep apnea (adult) (pediatric); E86.0 Dehydration; I10 Essential (primary) hypertension; I48.91 Unspecified atrial fibrillation; I25.10 Atherosclerotic heart disease of native coronary artery without angina pectoris; Z95.5 Presence of coronary angioplasty implant and graft; R45.1 Restlessness and agitation
CPT/HCPCS: 36415; 70450; 71045; 71046; 80048; 80053; 82805; 83880; 84145; 84443; 85025; 85610; 85730; 87040; 87070; 87077; 87186; 87205; 93005; 93306; 94640; 94660; 94760; 95816; 96365; 99285; J0692; J1630; J1650; J7030; J7040; J7605

== ENCOUNTER 2018-12-17 21:45 | Inpatient (IN) | payer OTHER ==
[2011-09-17 12:22] VITALS: BP 117/73
--- NOTE | 2018-12-28 18:37 | P.SSS ---
Patient History Date of Service: 12/28/18 Primary Care Provider: Dr Romano Reason for admission: Hospice Care History of Present Illness: 73 y/o M who was admitted to the ICU after CVA and now transitioned to Hospice Care. Please refer to the HPI from the last admission. Allergies simvastatin [From Zocor] Allergy (Verified 12/14/18 22:33) Unknown Home Medications: Atorvastatin Calcium [Lipitor] 10 mg PO DAILY #30 tablet 09/17/11 Rivaroxaban [Xarelto] 20 mg PO DAILY #30 tablet 09/17/11 hydroCHLOROthiazide [Hydrodiuril*] 25 mg PO DAILY 09/06/15 Cyanocobalamin/Folic AC/Vit B6 [Folbic Tablet] 1 tab PO DAILY 12/14/18 Aspirin Chewable [Aspirin Chewable*] 81 mg PO DAILY 12/15/18 Carvedilol [Coreg] 12.5 mg PO BID 12/15/18 Metformin HCl [Glucophage] 500 mg PO BIDWM 12/15/18 Valsartan [Diovan] 160 mg PO DAILY 12/15/18 - Past Medical/Surgical History Diabetic: No -: Hypertension -: Atrial fibrillation -: Hyperlipidemia -: Coronary artery disease with previous stent -: Morbid obesity -: Obstructive sleep apnea -: Cardiac catheterization with stent Psychosocial/ Personal History: He is single. Has no children. 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 - Social History Alcohol use: No CD- Drugs: No Caffeine use: No Review of Systems 10-point ROS is otherwise unremarkable Physical Examination - Physical Exam General: Comatose Respiratory: Diminished, Crackles/rales, Expiratory wheezes, Inspiratory wheezes Cardiovascular: Abnormal pulses, Irregular heart rate/rhythm Gastrointestinal: Normal bowel sounds, No tenderness Musculoskeletal: No tenderness Integumentary: No rashes Lymphatics: No axilla or inguinal lymphadenopathy - Diagnosis (Problem(s)) (1) CVA (cerebral vascular accident) Status: Acute Qualifiers: (2) Atrial fibrillation Onset Date: 09/07/15 Status: Chronic Qualifiers: (3) CAD (coronary artery disease) Onset Date: 09/07/15 Status: Chronic Qualifiers: (4) Hypertension Onset Date: 09/07/15 Status: Chronic Qualifiers: (5) Obstructive sleep apnea Onset Date: 09/07/15 Status: Chronic - Disposition Disposition:
== END 2018-12-18 01:10 | disposition expired | DRG 951 ==
LOC: 3RD-ICU 21:45
PROVIDERS: ATTEND Family Medicine
DX: Z51.5 Encounter for palliative care (principal); I63.9 Cerebral infarction, unspecified; I10 Essential (primary) hypertension; I48.91 Unspecified atrial fibrillation; E78.5 Hyperlipidemia, unspecified; I25.10 Atherosclerotic heart disease of native coronary artery without angina pectoris; E66.09 Other obesity due to excess calories; G47.33 Obstructive sleep apnea (adult) (pediatric)